=== PATIENT | female | born 1955 | race American Indian/Alaskan Native ===

== ENCOUNTER 2018-08-08 09:03 | Outpatient (CLI) | payer MEDICARE, OTHER ==
--- NOTE | 2018-08-08 14:54 | Mammography Report ---
BILATERAL DIGITAL SCREENING MAMMOGRAM with CAD : 08/08/18 09:03:00 CLINICAL: Routine screening. COMPARISON:09/21/16 FINDINGS: The breasts are heterogeneously dense, which may obscure small masses.An irregular partially circumscribed right inner mass with a biopsy clip is less dense and slightly smaller than on the last exam. No new mass, architectural distortion or suspicious calcifications. IMPRESSION: No mammographic evidence of malignancy. BI-RADS CATEGORY: 2 -- Benign RECOMMENDATION: Routine mammographic screening in one year. COMMENT: Patient follow-up letters are generated by our [employer] application.
== END 2018-08-08 09:04 | disposition home or self-care (01) ==
LOC: MAMMO 09:03
PROVIDERS: ATTEND Family Medicine
DX: Z12.31 Encounter for screening mammogram for malignant neoplasm of breast (principal)
CPT/HCPCS: 77067

== ENCOUNTER 2019-12-22 08:41 | Outpatient (CLI) | payer MEDICARE ==
--- NOTE | 2019-12-22 16:38 | Mammography Report ---
DIGITAL SCREENING MAMMOGRAM WITH CAD, 12/22/2019 CLINICAL INFORMATION / INDICATION: Routine screening mammography. SCREENING MAMMOGRAM TECHNIQUE: Digital bilateral 2D mammography was obtained in the craniocaudal and mediolateral obliqu e projections. This examination was interpreted with the benefit of Computer-Aided Detection analysis . COMPARISON: 09/21/2016 through 08/08/2018. FINDINGS: Breast Density: There are scattered areas of fibroglandular density. No dominant mass, suspicious calcifications, or architectural distortion in either breast. Small right breast nodule and associated biopsy clip are stable. A large keloid (marked with a skin m arker) overlying the biopsy site has increased in size. IMPRESSION: No mammographic evidence of malignancy. Follow up recommendation: Routine yearly BI-RADS Category 2: Benign. A "normal" or negative report should not discourage follow up or biopsy of a clinically significant f inding. A written summary of these findings will be mailed to the patient. The patient will be entered into a mammography reporting system which will generate a reminder letter for the patient's next appointmen t at the appropriate interval. The [employer] recommends yearly mammograms starting at age 40 and continuing as l rhonda as a woman is in good health. Breast MRI is recommended for women with an approximate 20-25% or greater lifetime risk of breast cancer, including women with a strong family history of breast or ova kirstin cancer or who have been treated for Hodgkin's disease. Signer Name: Dae Burroughs MD Signed: 12/22/2019 4:33 PM Workstation Name: [id number]
== END 2019-12-22 08:42 | disposition home or self-care (01) ==
LOC: SPVWC 08:41
PROVIDERS: ATTEND Family Medicine
DX: Z12.31 Encounter for screening mammogram for malignant neoplasm of breast (principal); N63.10 Unspecified lump in the right breast, unspecified quadrant
CPT/HCPCS: 77067

== ENCOUNTER 2021-01-30 13:13 | Outpatient (CLI) | payer MEDICARE ==
--- NOTE | 2021-01-31 14:11 | Mammography Report ---
DIGITAL SCREENING MAMMOGRAM WITH CAD, 01/30/2021 CLINICAL INFORMATION / INDICATION: Routine screening TECHNIQUE: Digital bilateral 2D mammography was obtained in the craniocaudal and mediolateral obliqu e projections. This examination was interpreted with the benefit of Computer-Aided Detection analysis . COMPARISON: 12/22/2019 FINDINGS: Breast Density: The breasts are almost entirely fatty. No dominant mass, suspicious calcifications, or architectural distortion in either breast. Right biopsy changes are again seen. The large keloid on the right as increased slightly in size and shows mild calcifications. IMPRESSION: No mammographic evidence of malignancy. Follow up recommendation: Routine yearly BI-RADS Category 2: BENIGN. A "normal" or negative report should not discourage follow up or biopsy of a clinically significant f inding. A written summary of these findings will be mailed to the patient. The patient will be entered into a mammography reporting system which will generate a reminder letter for the patient's next appointmen t at the appropriate interval. The [employer] recommends yearly mammograms starting at age 40 and continuing as l rhonda as a woman is in good health. Breast MRI is recommended for women with an approximate 20-25% or greater lifetime risk of breast cancer, including women with a strong family history of breast or ova kirstin cancer or who have been treated for Hodgkin's disease. Signer Name: Kyle Ortega MD Signed: 01/31/2021 2:07 PM Workstation Name: [id number]
== END 2021-01-30 13:14 | disposition home or self-care (01) ==
LOC: SPVWC 13:13
PROVIDERS: ATTEND Family Medicine
DX: Z12.31 Encounter for screening mammogram for malignant neoplasm of breast (principal)
CPT/HCPCS: 77067